=== PATIENT | female | born 1945 | race Caucasian/White ===

== ENCOUNTER 2016-11-18 22:12 | Emergency (ER) | payer BC, MEDICARE, OTHER ==
[~2016-11-18] VITALS: Ht 144.8 cm; Wt 40.4 kg
[2016-11-18] MEDS ORDERED: IV NS 0.9% 1,000 ML ONE (22:54)
[2016-11-18] MEDS ORDERED: IV SET PRIMARY 1 EA INFUS.SET MC ONE (22:54)
[2016-11-18] MEDS ORDERED: ONDANSETRON HCL/PF 4 MG/2 ML VIAL ONE (22:54)
[2016-11-18] MEDS: IV NS 0.9% 1,000 ML BAG IV ONE (23:00)
[2016-11-18] MEDS ORDERED: LORAZEPAM 1 MG TABLET ONE (23:02)
[2016-11-18] MEDS: ONDANSETRON HCL/PF 4 MG/2 ML VIAL IV ONE (23:02)
[2016-11-18] MEDS: LORAZEPAM 0.5 MG TABLET PO ONE (23:08)
[2016-11-18 23:28] LABS: BASOPHILS % (AUTO) 0.3 % (0.0-2.0); EOSINOPHILS % (AUTO) 0.6 % (0.0-6.0); HEMATOCRIT 21 % (33-45); HEMOGLOBIN 7.2 g/dL (11.5-14.8); LYMPHOCYTES # (AUTO) 1.8 /CMM (0.8-4.8); LYMPHOCYTES % (AUTO) 31.1 % (20.0-44.0); MEAN CORPUSCULAR HEMOGLOBIN 33 PG (26.0-33.0); MEAN CORPUSCULAR HGB CONC 34 g/dl (31.0-36.0); MEAN CORPUSCULAR VOLUME 97 fL (82-100); MONOCYTES # (AUTO) 0.6 /CMM (0.1-1.30); MONOCYTES % (AUTO) 9.5 % (2.0-12.0); NEUTROPHILS # (AUTO) 3.5 /CMM (1.8-8.9); NEUTROPHILS % (AUTO) 58.5 % (43.0-81.0); PLATELET COUNT (AUTO) 91 /CMM (150-450); RED BLOOD CELL COUNT(AUTO) 2.19 MIL/uL (4.0-5.2); WHITE BLOOD COUNT (AUTO) 5.9 K/uL (4.3-11.0)
--- NOTE | 2016-11-18 23:30 | NUR ---
XRAY IN PROGRESS AT THE BEDSIDE.
[2016-11-18 23:40] LABS: CALCIUM, SERUM 8.5 mg/dL (8.5-10.1); CARBON DIOXIDE 25 mmol/L (21-32); CHLORIDE 101 mmol/L (98-107); CREATININE 0.7 mg/dL (0.6-1.3); GLUCOSE 89 mg/dL (74-106); SODIUM SERUM 134 mmol/L (136-145); UREA NITROGEN, BLOOD 13 mg/dL (7-18)
[2016-11-18 23:41] LABS: INR 0.94 (0.87-1.13)
[2016-11-18 23:44] LABS: ALANINE AMINOTRANSFERASE 25 U/L (12-78); ALBUMIN 2.8 g/dL (3.4-5.0); ALKALINE PHOSPHATASE 125 U/L (46-116); ASPARTATE AMINOTRANSFERASE 17 U/L (15-37); BILIRUBIN,DIRECT 0.1 mg/dL (0.0-0.2); BILIRUBIN,TOTAL 0.3 mg/dL (0.2-1.0); LIPASE 271 U/L (73-393); TOTAL PROTEIN, SERUM 5.9 g/dL (6.4-8.2)
[2016-11-19 00:06] LABS: EOSINOPHILS % (MANUAL) 1 % (0-4); LYMPHOCYTES % (MANUAL) 31 % (16-48); MONOCYTES % (MANUAL) 7 % (0-11.0); NEUTROPHILS % (MANUAL) 61 (42-76)
[2016-11-19] MEDS ORDERED: LORAZEPAM 1 MG TABLET ONE (01:50)
--- NOTE | 2016-11-19 01:52 | NUR ---
PT TOLERATED PO WELL. PT APPEARS ANXIOUS. DR. MCKEON IS AWARE
--- NOTE | 2016-11-19 01:58 | NUR ---
PT REFUSED ATIVAN 0.5MG PO. PT STATED THAT IT MAKES HER FEEL HEAVY AND DOESN'T HELP HER ANXIETY.
[2016-11-19 02:38] LABS: HEMOGLOBIN 7.3 g/dL (11.5-14.8)
--- NOTE | 2016-11-19 03:15 | NUR ---
PT APPEARS TO BE RESTING COMFORTABLY. VSS.
--- NOTE | 2016-11-19 04:30 | NUR ---
IV removed. Catheter intact and site benign. Pressure and 4x4 applied to site. No bleeding noted.Patient discharged to home in stable condition. Written and verbal after care instructions given. Patient verbalizes understanding of instruction. PT AMBULATED OUT WITH A STEADY GAIT. VSS. PT REC'D A COPY OF ALL LABS AND XRAY.
[2016-11-19 04:47] VITALS: BP 108/67
== END 2016-11-19 04:30 | disposition home or self-care (01) ==
LOC: ER 22:18
DX: D64.9 Anemia, unspecified (principal); C85.90 Non-Hodgkin lymphoma, unspecified, unspecified site; F41.9 Anxiety disorder, unspecified; R79.1 Abnormal coagulation profile; G89.29 Other chronic pain; Z88.0 Allergy status to penicillin; Z88.1 Allergy status to other antibiotic agents; Z88.8 Allergy status to other drugs, medicaments and biological substances
CPT/HCPCS: 36415; 71010-TC; 80048-TC; 80076-TC; 83690-TC; 85025-TC; 85027-TC; 85730-TC; A4606; J2405; J7030; Z7610

== ENCOUNTER 2016-12-08 19:48 | Inpatient (IN) | payer MEDICARE, OTHER ==
[~2016-12-08] VITALS: Ht 157.5 cm; Wt 49.9 kg
--- NOTE | 2016-12-08 20:35 | NUR ---
71 YO FEMALE, C/O GENERALIZED BODY PAIN. PT IS ALERT X 3, NOTED DIFUSE BODY RASH, STATES SHE TRIED HYDROCORTIZONE WITHOUT RELIEF. PT GOWNED, PLACED ON MGMT SPECIALIST. AWAITING ORDERS FROM PROVIDER, WILL CONTINUE TO MONITOR
--- NOTE | 2016-12-08 21:00 | NUR ---
PT REFUSED MEDICATION
[2016-12-08] MEDS ORDERED: MORPHINE SULFATE INJ 4 MG/ML DISP.SYRIN ONE (21:15)
[2016-12-08] MEDS ORDERED: ONDANSETRON HCL/PF 4 MG/2 ML VIAL ONE (21:15)
[2016-12-08] MEDS ORDERED: ONDANSETRON HCL/PF 4 MG/2 ML VIAL IVP ONE (21:30)
[2016-12-08] MEDS ORDERED: MORPHINE SULFATE INJ 2 MG/ML DISP.SYRIN IV ONE (21:30)
[2016-12-08 21:40] LABS: BASOPHILS % (AUTO) 0.1 % (0.0-2.0); EOSINOPHILS # (AUTO) 0.1 /CMM (0.0-0.7); EOSINOPHILS % (AUTO) 0.4 % (0.0-6.0); HEMATOCRIT 27 % (33-45); HEMOGLOBIN 9.2 g/dL (11.5-14.8); LYMPHOCYTES # (AUTO) 0.9 /CMM (0.8-4.8); LYMPHOCYTES % (AUTO) 6.4 % (20.0-44.0); MEAN CORPUSCULAR HEMOGLOBIN 33 PG (26.0-33.0); MEAN CORPUSCULAR HGB CONC 34 g/dl (31.0-36.0); MEAN CORPUSCULAR VOLUME 96 fL (82-100); MONOCYTES # (AUTO) 0.2 /CMM (0.1-1.30); MONOCYTES % (AUTO) 1.4 % (2.0-12.0); NEUTROPHILS # (AUTO) 12.5 /CMM (1.8-8.9); NEUTROPHILS % (AUTO) 91.7 % (43.0-81.0); PLATELET COUNT (AUTO) 75 /CMM (150-450); RDW COEFFICIENT OF VARIATION 20.8 (11.5-15.0); RED BLOOD CELL COUNT(AUTO) 2.81 MIL/uL (4.0-5.2); WHITE BLOOD COUNT (AUTO) 13.7 K/uL (4.3-11.0)
[2016-12-08] MEDS ORDERED: ACETAMINOPHEN 325 MG TABLET ONE (21:50)
[2016-12-08 21:55] LABS: INR 0.99 (0.87-1.13); PROTHROMBIN TIME 10.3 SECS (9.5-12.7)
[2016-12-08] MEDS ORDERED: ACETAMINOPHEN 325 MG TABLET PO ONE (22:00)
[2016-12-08 22:05] LABS: ALANINE AMINOTRANSFERASE 33 U/L (12-78); ALBUMIN 2.3 g/dL (3.4-5.0); ALKALINE PHOSPHATASE 231 U/L (46-116); ASPARTATE AMINOTRANSFERASE 23 U/L (15-37); BILIRUBIN,DIRECT 0.2 mg/dL (0.0-0.2); BILIRUBIN,TOTAL 0.5 mg/dL (0.2-1.0); CALCIUM, SERUM 8.9 mg/dL (8.5-10.1); CARBON DIOXIDE 19 mmol/L (21-32); CHLORIDE 103 mmol/L (98-107); GLUCOSE 85 mg/dL (74-106); POTASSIUM 3.3 mmol/L (3.5-5.1); SODIUM SERUM 137 mmol/L (136-145); TOTAL PROTEIN, SERUM 5.8 g/dL (6.4-8.2); UREA NITROGEN, BLOOD 30 mg/dL (7-18)
[2016-12-08 22:20] LABS: BAND % (MANUAL) 14 % (0.0-5.0); LYMPHOCYTES % (MANUAL) 10 % (16-48); METAMYELOCYTES % 1 % (0-0); MONOCYTES % (MANUAL) 8 % (0-11.0); MYELOCYTES % 1 % (0-0); NEUTROPHILS % (MANUAL) 66 (42-76)
[2016-12-08] MEDS ORDERED: methylPREDNISolone SOD SUCC 125 MG/2ML VIAL ONE (22:45)
[2016-12-08] MEDS ORDERED: IV NS 0.9% 500 ML IV ONE (22:46)
[2016-12-08] MEDS ORDERED: IV SET PRIMARY 1 EA INFUS.SET MC ONE (22:46)
--- NOTE | 2016-12-08 22:54 | NUR ---
GOING TO M/S 206.2
[2016-12-08 22:56] LABS: APPEARANCE,URINE CLEAR (CLEAR); BILIRUBIN,URINE NEGATIVE (NEGATIVE); BLOOD, URINE 2+ Ery/uL (NEGATIVE); KETONES,URINE NEGATIVE (NEGATIVE); LEUKOCYTE ESTERASE ,URINE TRACE (NEGATIVE); NITRITE, URINE NEGATIVE (NEGATIVE); PROTEIN,URINE NEGATIVE (NEGATIVE); UGLUCOSE NEGATIVE (NEGATIVE); UROBILINOGEN,URINE 0.2 EU/dL (0.2)
[2016-12-08 22:58] LABS: COLOR,URINE STRAW (YELLOW)
[2016-12-08] MEDS ORDERED: IV NS 0.9% 500 ML BAG IV ONE (23:00)
[2016-12-08] MEDS ORDERED: methylPREDNISolone SOD SUCC 125 MG/2ML VIAL IV ONE (23:00)
--- NOTE | 2016-12-08 23:01 | NUR ---
MEDICATED PT ORDERED
--- NOTE | 2016-12-08 23:02 | NUR ---
PT TRANPORTED TO MS BED BY EMT WITHOUT INCIDENT
--- NOTE | 2016-12-08 23:02 | NUR ---
REPORT GIVEN TO JI
[2016-12-08 23:09] LABS: BACTERIA,URINE None seen /HPF (None Seen); SQUAMOUS EPITHELIAL CELL,UR Rare /HPF (None Seen); WBC,URINE 0-2 /HPF (0-3)
[2016-12-08] MEDS ORDERED: IV NS 0.9% 1,000 ML IV PRN (23:29)
[2016-12-08] MEDS ORDERED: IV SET PRIMARY PUMP SET 1 EA INFUS.SET MC ONE (23:30)
[2016-12-08] MEDS ORDERED: ACETAMINOPHEN 325 MG TABLET PO PRN (23:30)
[2016-12-08] MEDS ORDERED: LIDOCAINE 0.5%-EPI 1:200,000 50 ML VIAL TP ONE (23:30)
[2016-12-08] MEDS ORDERED: MORPHINE SULFATE INJ 2 MG/ML DISP.SYRIN IV PRN (23:30)
[2016-12-08] MEDS ORDERED: Z GUARD REMEDY 2 OZ OINT TP PRN (23:30)
[2016-12-08] MEDS ORDERED: PANTOPRAZOLE 40 MG TABLET.DR PO SCH (23:30)
[2016-12-08] MEDS ORDERED: ENOXAPARIN SODIUM 40 MG/0.4 ML DISP.SYRIN SQ SCH (23:30)
[2016-12-08] MEDS ORDERED: ONDANSETRON HCL/PF 4 MG/2 ML VIAL IVP PRN (23:30)
[2016-12-09] VITALS: BP 113/67
[2016-12-09] MEDS ORDERED: ENOXAPARIN SODIUM 40 MG/0.4 ML DISP.SYRIN SQ SCH
[2016-12-09] MEDS ORDERED: ONDANSETRON HCL/PF 4 MG/2 ML VIAL IVP PRN
[2016-12-09] MEDS ORDERED: MAGNESIUM HYDROXIDE 30 ML UDC PO PRN
--- NOTE | 2016-12-09 | NUR ---
MS SHELTER DIRECTOR NOTES ADMITTED THIS 71 Y.O. FEMALE PER RIRI FROM ER UNDER THE SERVICE OF JEWELS FINCH DNP.CHIEF COMPLAINT OF RASHES ON BOTH UPPER AND LOWER EXTREMITIES X 2 WEEKS.ACCOMPANIED BY FAMILY MEMBERS,ALERT,ORIENTED X3-4 FROM HOME,RASHES ON UPPER AND LOWER EXTREMITIES NOTED.SALINE LOCK LFA INTACT AND PATENT.NOTED PITTING EDEMA + 3 ON RIGHT FOOT,+2 ON THE LEFT FOOT.WITH KNOWN HX OF LYMPHOMA ON RIGHT ARM.BOTH HANDS APPEARS SWOLLEN AND SKIN IS PEELING OFF,WITH ITCHINESS PER PATIENT.EXPOSED TO AIR,WILL CONTINUE TO MONITOR.CALL LIGHT IN REACH,NEEDS ANTICIPATED.
[2016-12-09] MEDS ORDERED: IV NS 0.9% 1,000 ML ONE (00:05)
[2016-12-09] MEDS ORDERED: ENOXAPARIN SODIUM 40 MG/0.4 ML DISP.SYRIN SQ ONE (00:05)
[2016-12-09] MEDS: IV NS 0.9% 1,000 ML IV PRN (00:13)
--- NOTE | 2016-12-09 00:13 | NUR ---
MS RN NOTES STARTED ON NS AT 75ML/HR RATE VIA IV PUMP
--- NOTE | 2016-12-09 00:15 | NUR ---
MS RN NOTES C/O PAIN 7/10 ON PAIN SCALE,MEDICATED WITH NORCO 10/325MG, 1TAB PO FOR MODERATE PAIN.
[2016-12-09] MEDS: FLUOCINONIDE 0.05% CREAM 60 GM TUBE TP SCH ×3 (00:30→16:56)
[2016-12-09] MEDS ORDERED: hydrOXYzine PAMOATE 25 MG CAPSULE ONE (01:05)
[2016-12-09] MEDS ORDERED: HYDROCODONE/APAP 10/325MG 1 EA TABLET ONE (01:16)
[2016-12-09] MEDS: HYDROCODONE/APAP 10/325MG 1 EA TABLET PO PRN (01:21)
[2016-12-09] MEDS: hydrOXYzine PAMOATE 25 MG CAPSULE PO PRN ×2 (01:21→22:38)
--- NOTE | 2016-12-09 02:30 | NUR ---
MS RN NOTES AWAKE,ASSISTED TO THE TOILET.SHE DID #1,AND BRUSHED HER TEETH.CLAIMED SHE FEELS BETTER,LESS ITCHING THIS TIME.
--- NOTE | 2016-12-09 06:41 | NUR ---
MS RN NOTES ON BED A/O X3-4,FEELING BETTER VERBALIZED BY PT.LESS REDNESS ON HANDS,ABLE TO AMBULATE TO THE TOILET TO PEE.IVF INFUSING.CALL LIGHT IN REACH,NEEDS ANTICIPATED.WILL ENDORSE TO DAY NURSE FOR ALYSSA
[2016-12-09 06:47] LABS: HEMATOCRIT 28 % (33-45); HEMOGLOBIN 9.4 g/dL (11.5-14.8); LYMPHOCYTES # (AUTO) 0.9 /CMM (0.8-4.8); MEAN CORPUSCULAR HEMOGLOBIN 33 PG (26.0-33.0); MEAN CORPUSCULAR HGB CONC 34 g/dl (31.0-36.0); MEAN CORPUSCULAR VOLUME 97 fL (82-100); MONOCYTES % (AUTO) 0.2 % (2.0-12.0); NEUTROPHILS # (AUTO) 11.6 /CMM (1.8-8.9); NEUTROPHILS % (AUTO) 92.8 % (43.0-81.0); PLATELET COUNT (AUTO) 64 /CMM (150-450); RDW COEFFICIENT OF VARIATION 22.9 (11.5-15.0); RED BLOOD CELL COUNT(AUTO) 2.85 MIL/uL (4.0-5.2); WHITE BLOOD COUNT (AUTO) 12.5 K/uL (4.3-11.0)
[2016-12-09 07:07] LABS: ALANINE AMINOTRANSFERASE 29 U/L (12-78); ALBUMIN 2.2 g/dL (3.4-5.0); ALKALINE PHOSPHATASE 222 U/L (46-116); ASPARTATE AMINOTRANSFERASE 22 U/L (15-37); BILIRUBIN,TOTAL 0.4 mg/dL (0.2-1.0); CALCIUM, SERUM 8.6 mg/dL (8.5-10.1); CARBON DIOXIDE 19 mmol/L (21-32); CHLORIDE 106 mmol/L (98-107); CREATININE 1.1 mg/dL (0.6-1.3); GLUCOSE 132 mg/dL (74-106); MAGNESIUM 1.7 mg/dL (1.8-2.4); PHOSPHORUS 4.1 mg/dL (2.5-4.9); POTASSIUM 3.6 mmol/L (3.5-5.1); SODIUM SERUM 138 mmol/L (136-145); TOTAL PROTEIN, SERUM 5.7 g/dL (6.4-8.2); UREA NITROGEN, BLOOD 29 mg/dL (7-18)
[2016-12-09 07:10] LABS: CHOLESTEROL 94 mg/dL (<200); HDL CHOLESTEROL 13 mg/dL (40-60); LDL 40 mg/dL (0-99); THYROID STIMULATING HORMONE 1.958 uIU/mL (0.358-3.74); TRIGLYCERIDES 59 mg/dL (30-150)
--- NOTE | 2016-12-09 07:10 | NUR ---
RN OPEN NOTES RECEIVED REPORT FROM EKG/ECG TECHNICIAN NURSE. PATIENT IS IN BED, ALERT AND ORIENTED TO NAME, PLACE AND TIME. BED IN LOW POSITION, LOCKED AND TWO SIDE RAILS ARE UP. NO SIGNS AND SYMPTOMS OF DISTRESS. WILL CONTINUE TO MONITOR AND ASSESS PATIENT.
[2016-12-09 08:00] VITALS: BP 105/56
[2016-12-09] MEDS ORDERED: PANT40TA2 PO (08:23)
[2016-12-09] MEDS ORDERED: IBUP-1482 PO (08:23)
[2016-12-09] MEDS ORDERED: SULF1TAB48 PO (08:23)
[2016-12-09] MEDS ORDERED: FOLI1TAB16 PO (08:23)
[2016-12-09] MEDS ORDERED: LORA0.5T PO (08:23)
[2016-12-09] MEDS ORDERED: FLUC100T8 PO (08:23)
[2016-12-09] MEDS ORDERED: MULT1TAB73 PO (08:23)
[2016-12-09] MEDS ORDERED: IV SET PRIMARY PUMP SET 1 EA INFUS.SET MC ONE (08:50)
[2016-12-09] MEDS: methylPREDNISolone SOD SUCC 125 MG/2ML VIAL IV SCH ×4 (08:58→16:56)
[2016-12-09] MEDS: PANTOPRAZOLE 40 MG TABLET.DR PO SCH (08:58)
[2016-12-09] MEDS ORDERED: PAMIDRONATE 90 MG in IV NS 0.9% 500 ML IV SCH (09:00)
[2016-12-09 10:22] LABS: BAND % (MANUAL) 32 % (0.0-5.0); LYMPHOCYTES % (MANUAL) 8 % (16-48); NEUTROPHILS % (MANUAL) 60 (42-76)
--- NOTE | 2016-12-09 14:45 | NUR ---
DR ESTRADA NOTIFIED OF DIARRHEA. NO ANTI-DIARRHEA MEDS AT THIS POINT. STOOL SPECIMEN PENDING
--- NOTE | 2016-12-09 15:00 | NUR ---
DR DOMINGUEZ NOTIFIED TO RECONCILE HOME MEDICATIONS
[2016-12-09 16:00] VITALS: BP 110/69
--- NOTE | 2016-12-09 19:35 | NUR ---
RN CLOSING NOTES GAVE REPORT TO TECHNICAL INFORMATION SPECIALIST NURSE. NO SIGNS AND SYMPTOMS OF DISTRESS. DENIED PAIN. VITAL SIGNS ARE STABLE. IV SITE IN INTACT AND PATENT. BED IN LOW POSITION, LOCKED AND TWO SIDE RAILS ARE UP. PATIENT KEPT CLEAN AND DRY. ALL NEEDS ANTICIPATED.
[2016-12-09 19:54] VITALS: BP 98/59
--- NOTE | 2016-12-09 20:00 | NUR ---
MS2/RN RECEIVE PATIENT AWAKE, ALERT, ORIENTED, COMFORTABLE, NO C/O PAIN, PER PATIENT SHE FEELS MUCH BETTER THAN YESTERDAY, NO SIGNS OF DISTRESS NOTED, CALL LIGHT IN REACH. FALL PRECAUTION, WILL MONITOR.
--- NOTE | 2016-12-09 22:40 | NUR ---
MS2/RN C/O ITCHING OF THE SKIN LESIONS, VISTARIL 25 MG PO WAS GIVEN ORDERED. WILL MONITOR.
--- NOTE | 2016-12-10 | NUR ---
MS/RN SLEEPING, AROUSABLE, APPEAR COMFORTABLE, NO SIGNS OF DISTRESS NOTED, CALL LIGHT IN REACH. WILL CONTINUE TO MONITOR.
[2016-12-10 06:36] LABS: BASOPHILS % (AUTO) 0.1 % (0.0-2.0); HEMATOCRIT 24 % (33-45); HEMOGLOBIN 8.2 g/dL (11.5-14.8); LYMPHOCYTES # (AUTO) 0.8 /CMM (0.8-4.8); LYMPHOCYTES % (AUTO) 8.5 % (20.0-44.0); MEAN CORPUSCULAR HEMOGLOBIN 33 PG (26.0-33.0); MEAN CORPUSCULAR HGB CONC 34 g/dl (31.0-36.0); MEAN CORPUSCULAR VOLUME 96 fL (82-100); MONOCYTES # (AUTO) 0.1 /CMM (0.1-1.30); MONOCYTES % (AUTO) 0.9 % (2.0-12.0); NEUTROPHILS # (AUTO) 8.9 /CMM (1.8-8.9); NEUTROPHILS % (AUTO) 90.5 % (43.0-81.0); PLATELET COUNT (AUTO) 65 /CMM (150-450); RDW COEFFICIENT OF VARIATION 22.7 (11.5-15.0)
[2016-12-10 07:07] LABS: WHITE BLOOD COUNT (AUTO) 9.8 K/uL (4.3-11.0)
--- NOTE | 2016-12-10 07:33 | NUR ---
MS2/RN PATIENT IS AWAKE, NO C/O PAIN, ALL NEEDS ATTENDED AT THIS TIME. ENDORSED.
--- NOTE | 2016-12-10 07:47 | NUR ---
MS RN OPENING NOTE PATIENT IS ALERT AND ORIENTED x3. NO PAIN AT THIS TIME. NO SOB OR DISTRESS NOTED. CALL LIGHT WITHIN REACH. SAFETY MEASURES IMPLEMENTED. ABLE TO COMMUNICATE NEEDS, [place] SPEAKING. IV INTACT AND PATENT NO REDNESS NOTED, IV FLUIDS RUNNING. WILL CONTINUE TO MONITOR
[2016-12-10 08:00] VITALS: BP 115/65
[2016-12-10 08:11] LABS: CALCIUM, SERUM 8.5 mg/dL (8.5-10.1); CREATININE 0.9 mg/dL (0.6-1.3); GLUCOSE 160 mg/dL (74-106); MAGNESIUM 1.9 mg/dL (1.8-2.4); UREA NITROGEN, BLOOD 39 mg/dL (7-18)
[2016-12-10 08:16] LABS: CARBON DIOXIDE 15 mmol/L (21-32); CHLORIDE 111 mmol/L (98-107); POTASSIUM 3.3 mmol/L (3.5-5.1); SODIUM SERUM 142 mmol/L (136-145)
[2016-12-10 08:20] LABS: BAND % (MANUAL) 17 % (0.0-5.0); LYMPHOCYTES % (MANUAL) 7 % (16-48); MONOCYTES % (MANUAL) 2 % (0-11.0); NEUTROPHILS % (MANUAL) 74 (42-76)
[2016-12-10] MEDS: hydrOXYzine PAMOATE 25 MG CAPSULE PO PRN ×2 (08:32→18:48)
[2016-12-10] MEDS: ACETAMINOPHEN 325 MG TABLET PO PRN ×2 (08:32→16:17)
[2016-12-10] MEDS: methylPREDNISolone SOD SUCC 125 MG/2ML VIAL IV SCH ×3 (08:34→16:16)
[2016-12-10] MEDS: PANTOPRAZOLE 40 MG TABLET.DR PO SCH (08:34)
--- NOTE | 2016-12-10 08:38 | NUR ---
WOUND CARE CONSULT: PT HAS REDNESS AND PEELING SKIN TO BODY, ESPECIALLY HANDS. DEFER TO MD. PT IS AMBULATORY AND CONTINENT. WILL SEE PRN.
--- NOTE | 2016-12-10 09:42 | NUR ---
MS RN NOTE PATIENT IS GOING DOWN TO CT WITHOUT CONTRAST. PATIENT IS STABLE NO PAIN, NO SOB OR DISTRESS NOTED.
--- NOTE | 2016-12-10 09:55 | NUR ---
MS RN NOTE PATIENT IS BACK FROM CT SCAN. PATIENT IS STABLE, NO PAIN AT THIS TIME NO SOB OR DISTRESS NOTED. WILL CONTINUE TO MONITOR
[2016-12-10] MEDS ORDERED: POTASSIUM CL. PREMIX PERIPHER. 50 ML IV SCH ×2 (10:00→14:30)
[2016-12-10] MEDS ORDERED: SECONDARY IV SET 1 EA INFUS.SET MC ONE (10:32)
[2016-12-10] MEDS ORDERED: IV SET PRIMARY PUMP SET 1 EA INFUS.SET MC ONE (10:35)
[2016-12-10] MEDS: FLUOCINONIDE 0.05% CREAM 60 GM TUBE TP SCH ×2 (10:42→16:16)
[2016-12-10] MEDS ORDERED: POTASSIUM CHLORIDE 20 MEQ TAB.PRT.SR PO SCH (11:00)
[2016-12-10 16:00] VITALS: BP 113/74
[2016-12-10] MEDS: IV NS 0.9% 1,000 ML IV PRN (16:16)
[2016-12-10 18:28] LABS: RETICULOCYTE COUNT 1.5 % (0.6-2.5)
--- NOTE | 2016-12-10 18:38 | NUR ---
MS RN CLOSING NOTE PATIENT IS ALERT AND ORIENTED x3. NO PAIN AT THIS TIME. NO SOB OR DISTRESS NOTED. PERIODS OF CONFUSION. CALL LIGHT WITHIN REACH AT ALL TIMES. SAFETY MEASURES IMPLEMENTED. IV INTACT AND PATENT NO REDNESS OR SWELLING NOTED, IV FLUIDS RUNNING AT 75 ML/HR AT THIS TIME. ABLE TO COMMUNICATE NEEDS, INDONESIAN SPEAKING. WILL ENDORSE TO RIGGING MAN NURSE
[2016-12-10 18:51] LABS: THYROID STIMULATING HORMONE 1.636 uIU/mL (0.358-3.74); URIC ACID 4.7 mg/dL (2.6-7.2)
[2016-12-10 20:00] VITALS: BP 115/74
[2016-12-10] MEDS ORDERED: MAG HYDROX/AL HYDROX/SIMETH 30 ML UDC PO PRN (21:00)
[2016-12-10] MEDS ORDERED: MAG HYDROX/AL HYDROX/SIMETH 30 ML UDC ONE (21:00)
[2016-12-10 21:11] LABS: D-DIMER 2.23 mg/L(FEU (0.17-0.50); INR 0.94 (0.87-1.13)
--- NOTE | 2016-12-10 21:14 | NUR ---
RN NOTES COMPLAINED OF GAS PAIN- MAALOX 30ML PO GIVEN ORDERED,,V/S STABLE
[2016-12-10] MEDS: HYDROCODONE/APAP 10/325MG 1 EA TABLET PO PRN (21:23)
--- NOTE | 2016-12-10 22:14 | NUR ---
MS2/RN PATIENT SAID GAS PAIN IS BETTER.
[2016-12-10] MEDS: MORPHINE SULFATE INJ 4 MG/ML DISP.SYRIN IV PRN (23:38)
--- NOTE | 2016-12-11 00:41 | NUR ---
MS2/RN PATIENT IS SLEEPING AT THIS TIME, AROUSABLE, APPEAR COMFORTABLE, NO SIGNS OF DISTRESS NOTED, CALL LIGHT IN REACH. WILL CONTINUE TO MONITOR.
[2016-12-11] MEDS: hydrOXYzine PAMOATE 25 MG CAPSULE PO PRN ×3 (02:22→23:17)
--- NOTE | 2016-12-11 02:23 | NUR ---
MS2/RN PATIENT C/O ITCHING, VISTARIL 25 MG PO WAS GIVEN ORDERED PER PATIENT'S REQUEST. WILL MONITOR.
[2016-12-11] MEDS: MORPHINE SULFATE INJ 4 MG/ML DISP.SYRIN IV PRN (06:08)
[2016-12-11] MEDS: IV NS 0.9% 1,000 ML IV PRN (06:14)
[2016-12-11 06:33] LABS: BASOPHILS % (AUTO) 0.1 % (0.0-2.0); EOSINOPHILS % (AUTO) 0.1 % (0.0-6.0); HEMATOCRIT 22 % (33-45); HEMOGLOBIN 7.4 g/dL (11.5-14.8); LYMPHOCYTES # (AUTO) 0.7 /CMM (0.8-4.8); LYMPHOCYTES % (AUTO) 14.2 % (20.0-44.0); MEAN CORPUSCULAR HEMOGLOBIN 33 PG (26.0-33.0); MEAN CORPUSCULAR HGB CONC 34 g/dl (31.0-36.0); MEAN CORPUSCULAR VOLUME 96 fL (82-100); MONOCYTES # (AUTO) 0.3 /CMM (0.1-1.30); MONOCYTES % (AUTO) 5.3 % (2.0-12.0); NEUTROPHILS # (AUTO) 4.2 /CMM (1.8-8.9); NEUTROPHILS % (AUTO) 80.3 % (43.0-81.0); PLATELET COUNT (AUTO) 51 /CMM (150-450); RDW COEFFICIENT OF VARIATION 22.5 (11.5-15.0); RED BLOOD CELL COUNT(AUTO) 2.27 MIL/uL (4.0-5.2); WHITE BLOOD COUNT (AUTO) 5.2 K/uL (4.3-11.0)
[2016-12-11 06:47] LABS: CALCIUM, SERUM 8.5 mg/dL (8.5-10.1); CARBON DIOXIDE 18 mmol/L (21-32); CHLORIDE 113 mmol/L (98-107); CREATININE 0.9 mg/dL (0.6-1.3); GLUCOSE 117 mg/dL (74-106); MAGNESIUM 1.9 mg/dL (1.8-2.4); PHOSPHORUS 2.9 mg/dL (2.5-4.9); POTASSIUM 3.7 mmol/L (3.5-5.1); SODIUM SERUM 143 mmol/L (136-145); UREA NITROGEN, BLOOD 45 mg/dL (7-18)
--- NOTE | 2016-12-11 07:01 | NUR ---
MS2/RN PATIENT IS AWAKE, ALERT, ORIENTED, NO C/O PAIN AT THIS TIME, ALL NEEDS ATTENDED AT THIS TIME. WILL CONTINUE TO MONITOR.
--- NOTE | 2016-12-11 07:52 | NUR ---
MS RN OPENING NOTE PATIENT IS ALERT AND ORIENTED x4. NO PAIN AT THIS TIME. NO SOB OR DISTRESS NOTED. CALL LIGHT WITHIN REACH. SAFETY MEASURES IMPLEMENTED. ABLE TO COMMUNICATE NEEDS. [place] SPEAKING. IV INTACT AND PATENT NO REDNESS OR SWELLING NOTED. WILL CONTINUE TO MONITOR
[2016-12-11 08:00] VITALS: BP 117/48
--- NOTE | 2016-12-11 08:11 | NUR ---
MS RN NOTE INFORMED DR. ESTRADA ABOUT PATIENT'S CRITICAL LAB VALUE FOR HEMOGLOBIN 7.4 AND HEMATOCRIT 22. NO NEW ORDERS AT THIS TIME. N TRANSFUSION AT THIS TIME, WILL CONTINUE TO MONITOR PATIENT FOR ANY SIGNS OF BLEEDING.
[2016-12-11] MEDS: methylPREDNISolone SOD SUCC 125 MG/2ML VIAL IV SCH ×3 (08:39→17:11)
[2016-12-11] MEDS: PANTOPRAZOLE 40 MG TABLET.DR PO SCH (08:39)
[2016-12-11] MEDS: FLUOCINONIDE 0.05% CREAM 60 GM TUBE TP SCH ×2 (08:41→17:12)
[2016-12-11 08:56] LABS: BAND % (MANUAL) 4 % (0.0-5.0); LYMPHOCYTES % (MANUAL) 8 % (16-48); MONOCYTES % (MANUAL) 5 % (0-11.0); NEUTROPHILS % (MANUAL) 83 (42-76)
--- NOTE | 2016-12-11 09:00 | NUR ---
MS RN NOTE PATIENT'S IV INFILTRATED. IV REMOVED. NEW IV STARTED ON LEFT WRIST 22 GAUGE. INATCT AND PATENT NO REDNESS OR SWELLING NOTED.
[2016-12-11 16:00] VITALS: BP 125/67
--- NOTE | 2016-12-11 18:48 | NUR ---
MS RN CLOSING NOTE PATIENT IS ALERT AND ORIENTED x3. NO PAIN AT THIS TIME. NO SOB OR DISTRESS NOTED. CALL LIGHT WITHIN REACH AT ALL TIMES. SAFETY MEASURES IMPLEMENTED. ABLE TO COMMUNICATE NEEDS. IV INTACT AND PATENT NO REDNESS OR SWELLING NOTED. PER DR. ESTRADA MONITOR FOR SIGNS OF BLEEDING DUE TO H/H BEING LOW. WILL ENDORSE TO DINING CAR STEWARD NURSE
--- NOTE | 2016-12-11 19:35 | NUR ---
MSRN FULLY AWAKE, GENERALIZED RASH SEEN. IVF ON AND OFF, HARDSTICK. WILL NEED TO RESTART IV SITE. ALL NEEDS MADE. SAFETY PRECAUTINS EMPHASIZED.
[2016-12-11 20:00] VITALS: BP 125/72
[2016-12-11] MEDS: TEMAZEPAM 15 MG CAPSULE PO PRN (20:49)
--- NOTE | 2016-12-11 20:50 | NUR ---
MSRN WANTED TO HAVE RESTORIL EARLY, STATED DID NOT HAVE ENOUGH SLEEP ALL DAY. MED ADMINISTERED. ASSISTED TO BSC VOIDED FREELY.
--- NOTE | 2016-12-11 22:40 | NUR ---
MSRN UNABLE TO RESTART HL, POOR VEINS. HAVE HAND STRIPER START NEW SITE WAS UNSUCCESSFULL. WILL HAVE RN FROM ER START HL. PATIENT COMPLAINING NEED TO HAVE MORE STERIODS, EDUCATED PATIENT SIDE EFFECTS OF GETTING TOO MUCH STERIOD. MEDICATIN REGIMEN REVIEWED WITH PATIENT, STILL NEEDS FURTHER EXPLANATION. ICU NURSE DUCATED PATIENT STILL NEEDS FURTHER EXPLANATION. VISTARIL FOR ITCHING ADMINISTERED.
--- NOTE | 2016-12-12 00:30 | NUR ---
MSRN GAS APPLIANCE INSTALLER ABLE TO INSERT 20 GAUGE ON LEFT FOREARM WITH GOOD BLOOD RETURN. PRESENT IVF CONTINUED. REQUESTED FOR MORPHINE IV FOR GEN PAIN RYAN LEFT ARM FROM IV SITE.
[2016-12-12] MEDS: MORPHINE SULFATE INJ 4 MG/ML DISP.SYRIN IV PRN (00:54)
--- NOTE | 2016-12-12 03:44 | NUR ---
MSRN FREQ CHECKED, SLEEPING APPEARS COMFORTABLE.
--- NOTE | 2016-12-12 06:00 | NUR ---
MSRN LABS DRAWN. NO OTHER NEEDS MADE.
[2016-12-12 06:45] LABS: BASOPHILS % (AUTO) 0.2 % (0.0-2.0); HEMATOCRIT 22 % (33-45); HEMOGLOBIN 7.5 g/dL (11.5-14.8); LYMPHOCYTES # (AUTO) 0.8 /CMM (0.8-4.8); LYMPHOCYTES % (AUTO) 20.5 % (20.0-44.0); MEAN CORPUSCULAR HEMOGLOBIN 32 PG (26.0-33.0); MEAN CORPUSCULAR HGB CONC 34 g/dl (31.0-36.0); MEAN CORPUSCULAR VOLUME 95 fL (82-100); MONOCYTES # (AUTO) 0.3 /CMM (0.1-1.30); MONOCYTES % (AUTO) 7.7 % (2.0-12.0); NEUTROPHILS # (AUTO) 2.6 /CMM (1.8-8.9); NEUTROPHILS % (AUTO) 71.6 % (43.0-81.0); RDW COEFFICIENT OF VARIATION 22.5 (11.5-15.0); RED BLOOD CELL COUNT(AUTO) 2.32 MIL/uL (4.0-5.2); WHITE BLOOD COUNT (AUTO) 3.7 K/uL (4.3-11.0)
[2016-12-12 06:52] LABS: PLATELET COUNT (AUTO) 46 /CMM (150-450)
[2016-12-12 06:54] LABS: CALCIUM, SERUM 7.9 mg/dL (8.5-10.1); CARBON DIOXIDE 21 mmol/L (21-32); CREATININE 0.8 mg/dL (0.6-1.3); GLUCOSE 110 mg/dL (74-106); PHOSPHORUS 3.2 mg/dL (2.5-4.9); UREA NITROGEN, BLOOD 42 mg/dL (7-18)
--- NOTE | 2016-12-12 07:35 | NUR ---
AM RN NOTE Received patient sleeping comfortably in her bed, no acute distress noted. No SOB noted resp even and non-labored. Received report form previous shift RN with lab results endorsed, H/H 7.5, Na 121, K 2.8, Plt count 46, notified Dr. Green with NNO at this time. IV site intact and patent. Bed in low locked position. Will continue to monitor. Call light with in reach.
[2016-12-12 07:37] LABS: BAND % (MANUAL) 5 % (0.0-5.0); LYMPHOCYTES % (MANUAL) 16 % (16-48); MONOCYTES % (MANUAL) 9 % (0-11.0); NEUTROPHILS % (MANUAL) 70 (42-76)
[2016-12-12 08:00] VITALS: BP 122/70
--- NOTE | 2016-12-12 08:07 | NUR ---
AM RN NOTE Received call from Karrie (Lab) that they repeated chemistry and Na 139 and K 3.[address] Green with new order noted and carried out.
[2016-12-12] MEDS ORDERED: POTASSIUM CHLORIDE 20 MEQ TAB.PRT.SR PO ONE ×2 (08:30→12:30)
[2016-12-12] MEDS: methylPREDNISolone SOD SUCC 125 MG/2ML VIAL IV SCH ×3 (08:41→16:34)
[2016-12-12] MEDS: PANTOPRAZOLE 40 MG TABLET.DR PO SCH (08:42)
[2016-12-12] MEDS: FLUOCINONIDE 0.05% CREAM 60 GM TUBE TP SCH ×2 (08:44→16:34)
[2016-12-12 09:42] LABS: SODIUM SERUM 139 mmol/L (136-145)
[2016-12-12 09:43] LABS: CHLORIDE 110 mmol/L (98-107); POTASSIUM 3.2 mmol/L (3.5-5.1)
--- NOTE | 2016-12-12 12:15 | NUR ---
AM RN NOTE Patient noted with swelling on left lower arm, seen and assessed by Dr. Green with new order for duplex. IV fluids held, extremity elevated with pillow and ice applied per Dr. Green. Will continue to monitor.
[2016-12-12 16:00] VITALS: BP 108/59
--- NOTE | 2016-12-12 16:00 | NUR ---
AM RN NOTE Decrease in swelling noted on Left arm. Awaiting for duplex test.
--- NOTE | 2016-12-12 17:20 | NUR ---
AM RN NOTE Patient noted with diarrhea, notified Dr. Green with new order to collect stool for C-diff, order noted and carried out.
--- NOTE | 2016-12-12 18:12 | NUR ---
AM RN NOTED Patient lying in her bed, no acute distress noted. Instructed pt an staff to collect sample of stool, whenever she moves her bowels. Awaiting for venous duplex to be done. Will endorse care to next shift.
--- NOTE | 2016-12-12 18:51 | NUR ---
AM RN NOTE Stool sample for C-diff collected and placed in fridge. Velma (lab) made aware. Called US department to check when they are coming to do duplex, no response. Will call back and endorse to next shift.
--- NOTE | 2016-12-12 19:30 | NUR ---
MS RN NOTE RECEIVED PATIENT FROM DAY SHIFT, PATIENT IS ALERT AND ORIENTEDX3, AMBULATORY WITH ASSIST, NO S/S OF RESPIRATORY DISTRESS OR PAIN AT THIS TIME. PEELING SKIN RASH NOTED ON HANDS AND LEFT ARM SWELLING NOTED, AWAITING FOR FIRER RETORT FOR VENOUS DUPLEX BUE. IV ON LEFT FA IS PATENT AND INTACT, HOLDING FLUID FOR A WHILE DUE TO SWELLING. SRX2, BED IN LOW POSITION, CALL LIGHT WITHIN REACH, WILL CONTINUE TO MONITOR PATIENT.
--- NOTE | 2016-12-12 19:45 | NUR ---
MS RN NOTE WEBSPHERE COMMERCE DEVELOPER AT THE BEDSIDE FOR VENOUS DUPLEX. NEGATIVE FOR DVT.
[2016-12-12 20:00] VITALS: BP 134/68
[2016-12-12] MEDS: TEMAZEPAM 15 MG CAPSULE PO PRN (22:42)
--- NOTE | 2016-12-12 23:00 | NUR ---
MS RN NOTE NOTIFIED ONCSALIMA CHOE THAT PATIENT'S OB STOOL WAS POSITIVE. HE MADE AWARE OF IT, NO ORDER RECEIVED. WILL ENDORSE TO DAY SHIFT NURSE.
[2016-12-13 06:35] LABS: BASOPHILS % (AUTO) 0.1 % (0.0-2.0); HEMATOCRIT 23 % (33-45); LYMPHOCYTES # (AUTO) 0.9 /CMM (0.8-4.8); LYMPHOCYTES % (AUTO) 19.7 % (20.0-44.0); MEAN CORPUSCULAR HEMOGLOBIN 33 PG (26.0-33.0); MEAN CORPUSCULAR HGB CONC 34 g/dl (31.0-36.0); MEAN CORPUSCULAR VOLUME 97 fL (82-100); MONOCYTES # (AUTO) 0.3 /CMM (0.1-1.30); MONOCYTES % (AUTO) 6.8 % (2.0-12.0); NEUTROPHILS # (AUTO) 3.2 /CMM (1.8-8.9); NEUTROPHILS % (AUTO) 73.4 % (43.0-81.0); PLATELET COUNT (AUTO) 57 /CMM (150-450); RDW COEFFICIENT OF VARIATION 22.4 (11.5-15.0); RED BLOOD CELL COUNT(AUTO) 2.43 MIL/uL (4.0-5.2); WHITE BLOOD COUNT (AUTO) 4.4 K/uL (4.3-11.0)
--- NOTE | 2016-12-13 06:42 | NUR ---
MS RN NOTE PATIENT IS RESTING IN BED COMFORTABLY, NO S/S OF RESPIRATORY DISTRESS OR PAIN AT THIS TIME. NO ACUTE EVENT NOTED DURING THE GUM MACHINE FILLER. WILL ENDORSE TO DAY SHIFT NURSE FOR ALYSSA.
[2016-12-13 07:09] LABS: CALCIUM, SERUM 8.1 mg/dL (8.5-10.1); CARBON DIOXIDE 21 mmol/L (21-32); CHLORIDE 109 mmol/L (98-107); CREATININE 0.8 mg/dL (0.6-1.3); GLUCOSE 131 mg/dL (74-106); MAGNESIUM 1.8 mg/dL (1.8-2.4); PHOSPHORUS 2.7 mg/dL (2.5-4.9); POTASSIUM 3.4 mmol/L (3.5-5.1); SODIUM SERUM 142 mmol/L (136-145); UREA NITROGEN, BLOOD 36 mg/dL (7-18)
--- NOTE | 2016-12-13 07:21 | NUR ---
AM RN NOTE Received patient awake, A/O X3 lying in her bed comfortably, no acute distress noted. No SOB noted resp even and non-labored. Skin rash on body still visible and peeling skin noted on Mahendra hands. IV site intact and patent and IV fluids on hold as endorsed by shift boss. Bed in low locked position. Will continue to monitor.
[2016-12-13 08:00] VITALS: BP 113/70
[2016-12-13] MEDS: FLUOCINONIDE 0.05% CREAM 60 GM TUBE TP SCH ×2 (08:03→16:19)
[2016-12-13] MEDS: methylPREDNISolone SOD SUCC 125 MG/2ML VIAL IV SCH ×3 (08:04→16:19)
[2016-12-13] MEDS: PANTOPRAZOLE 40 MG TABLET.DR PO SCH (08:04)
[2016-12-13 09:34] LABS: BAND % (MANUAL) 9 % (0.0-5.0); EOSINOPHILS % (MANUAL) 1 % (0-4); LYMPHOCYTES % (MANUAL) 20 % (16-48); METAMYELOCYTES % 1 % (0-0); MONOCYTES % (MANUAL) 9 % (0-11.0); MYELOCYTES % 1 % (0-0); NEUTROPHILS % (MANUAL) 59 (42-76)
[2016-12-13] MEDS ORDERED: POTASSIUM CHLORIDE 20 MEQ TAB.PRT.SR PO ONE ×2 (12:00→12:30)
--- NOTE | 2016-12-13 12:30 | NUR ---
AM RN NOTE Swelling on ERIC subsiding and IV fluids held. Dr. Norma morton.
[2016-12-13 16:00] VITALS: BP 127/69
--- NOTE | 2016-12-13 18:13 | NUR ---
AM RN NOTE Pt c/o loose BM notified Dr. Green with NNO, awaiting for C-diff results per MD. Will continue to monitor and endorse care to next shift.
--- NOTE | 2016-12-13 19:30 | NUR ---
RN NOTES: -RECEIVED AWAKE ON BED, A/OX3, PER PATIENT SHE HAS DIARRHEA UPON ENDORSEMENT IT WAS ALREADY RELAYED TO DR. ESTRADA PER AM RN,NNO. AWAITING FOR THE C-DIFF RESULT.PATIENT IS AMBULATORY GOING TO THE BATHROOM, IV SITE LFA G#20 PATENT, ENCOURAGE TO INCREASE ORAL FLUIDS,ABLE TO TO TAKE ORALLY.CALL LIGHT WITHIN EASY REACH, FALL, SAFETY AND ASPIRATION PRECAUTION OBSERVE.SKIN -PEELING NOTED ON THE RIGHT AND LEFT HANDS.
[2016-12-13 20:00] VITALS: BP 131/73
[2016-12-13] MEDS ORDERED: DIPHENOXYLATE HCL/ATROP SULF 1 UDTAB TABLET ONE (21:19)
[2016-12-13] MEDS: DIPHENOXYLATE HCL/ATROP SULF 1 UDTAB TABLET PO PRN (21:36)
--- NOTE | 2016-12-13 21:44 | NUR ---
RN NOTES: 2114 PATIENT IS STILL HAVING DIARRHEA ALMOST 6X SINCE 7PM, REQUESTING TO HAVE LOMOTIL,FATBACK TRIMMER(ORLY) NOTIFIED ORDER TO GIVE LOMOTIL 2 TAB Q 4H PRN FOR DIARRHEA NTE 8X A DAY, NOTED AND CARRIED OUT.PATIENT WAS VERY DELIGHTED WHEN SHE RECEIVED THE MEDICATION.
[2016-12-13] MEDS: TEMAZEPAM 15 MG CAPSULE PO PRN (22:17)
--- NOTE | 2016-12-13 22:32 | NUR ---
RN NOTES: PATIENT COULD NOT SLEEP,SHE CLAIMED SHE FEEL BETTER AFTER THE LOMOTIL WAS GIVEN ,REQUEST FOR RESTORIL PRN FOR SLEEP, GIVEN AT 2226..
--- NOTE | 2016-12-14 02:19 | NUR ---
RN NOTES: ABLE TO SLEEP AND REST. ON FREQUENT VISUAL CHECK.
--- NOTE | 2016-12-14 03:50 | NUR ---
RN NOTES: PATIENT COMPLAINED OF PAIN ON THE IV SITE,UNABLE TO FLUSH, NO BACKFLOW,PATIENT REQUEST TO REMOVE AND RE-SITE THE CANNULA,RN INSERTED NEW CANNULA ON THE RIGHT HAND,G#24, 1 ATTEMPT WITH GOOD BACK FLOW, SECURED WITH TRANSPARENT DRESSING AND WRAP WITH KURLEX,IVF N/S RESTARTED AT 75ML/HR.
[2016-12-14] MEDS: IV NS 0.9% 1,000 ML IV PRN (04:47)
--- NOTE | 2016-12-14 04:48 | NUR ---
RN NOTES: IVF FINISHED, NEW BAG STARTED AT 0446 NS AT 75 ML/HR VIA INFUSSION PUMP.
--- NOTE | 2016-12-14 07:12 | NUR ---
RN NOTES: BLOOD TEST DONE, AWAITING FOR THE RESULT,KEPT ON CLOSE MONITORING,IVF ONGOING, BED LOW AND LOCKED, CALL LIGHT WITHIN EASY, ENDORSED FOR CONTINUITY OF CARE.
--- NOTE | 2016-12-14 07:32 | NUR ---
AM RN NOTE Received patient sleeping comfortably in her bed, no acute distress noted. Resp even and non-labored. IV site intact and patent. Bed in low locked position. Will continue to monitor. Call light with in reach.
[2016-12-14 07:35] LABS: BASOPHILS % (AUTO) 0.2 % (0.0-2.0); HEMATOCRIT 23 % (33-45); HEMOGLOBIN 7.7 g/dL (11.5-14.8); LYMPHOCYTES % (AUTO) 21.8 % (20.0-44.0); MEAN CORPUSCULAR HEMOGLOBIN 32 PG (26.0-33.0); MEAN CORPUSCULAR HGB CONC 33 g/dl (31.0-36.0); MEAN CORPUSCULAR VOLUME 96 fL (82-100); MONOCYTES # (AUTO) 0.1 /CMM (0.1-1.30); MONOCYTES % (AUTO) 1.7 % (2.0-12.0); NEUTROPHILS # (AUTO) 3.5 /CMM (1.8-8.9); NEUTROPHILS % (AUTO) 76.3 % (43.0-81.0); PLATELET COUNT (AUTO) 56 /CMM (150-450); RDW COEFFICIENT OF VARIATION 21.6 (11.5-15.0); RED BLOOD CELL COUNT(AUTO) 2.39 MIL/uL (4.0-5.2); WHITE BLOOD COUNT (AUTO) 4.6 K/uL (4.3-11.0)
[2016-12-14 07:50] LABS: CALCIUM, SERUM 8.2 mg/dL (8.5-10.1); CHLORIDE 110 mmol/L (98-107); CREATININE 0.6 mg/dL (0.6-1.3); GLUCOSE 102 mg/dL (74-106); MAGNESIUM 1.7 mg/dL (1.8-2.4); PHOSPHORUS 2.4 mg/dL (2.5-4.9); POTASSIUM 3.5 mmol/L (3.5-5.1); SODIUM SERUM 143 mmol/L (136-145); UREA NITROGEN, BLOOD 29 mg/dL (7-18)
[2016-12-14 07:55] LABS: CARBON DIOXIDE 22 mmol/L (21-32)
[2016-12-14 08:00] VITALS: BP 126/60
[2016-12-14] MEDS: methylPREDNISolone SOD SUCC 125 MG/2ML VIAL IV SCH ×3 (08:18→16:11)
[2016-12-14] MEDS: FLUOCINONIDE 0.05% CREAM 60 GM TUBE TP SCH ×2 (08:18→16:12)
[2016-12-14] MEDS: PANTOPRAZOLE 40 MG TABLET.DR PO SCH (08:18)
[2016-12-14 08:41] LABS: BAND % (MANUAL) 7 % (0.0-5.0); EOSINOPHILS % (MANUAL) 1 % (0-4); LYMPHOCYTES % (MANUAL) 18 % (16-48); METAMYELOCYTES % 2 % (0-0); MONOCYTES % (MANUAL) 8 % (0-11.0); NEUTROPHILS % (MANUAL) 64 (42-76)
--- NOTE | 2016-12-14 09:30 | NUR ---
AM RN NOTE Received call from Dr. Pope (Oncologist) and requested for patient oncologist numbers and records from [facility]. Telephone number of Dr. Amilcar Espinoza (Oncologist) [phone] and Toshia Wiggins (Oncologist) [phone] obtained from patient and given to Dr. Pope. Pt stated she brought all the records to ER in October when she was hospitalized here. Call [facility] Medical records and no response, Dr. Abdul made aware and will request records tomorrow.
[2016-12-14] MEDS ORDERED: ERGOCALCIFEROL (VITAMIN D 2) 50,000 UNIT CAPSULE PO ONE (10:00)
[2016-12-14] MEDS ORDERED: SECONDARY IV SET 1 EA INFUS.SET MC ONE ×2 (10:17→12:27)
[2016-12-14] MEDS: Magnesium 1GM/D5W 100ML PREMIX 100 ML IV SCH ×2 (10:22→11:25)
[2016-12-14] MEDS ORDERED: Sodium Phosphate 15 MMOL in IV D5W 250 ML IV ONE (11:00)
[2016-12-14 16:00] VITALS: BP 118/64
[2016-12-14] MEDS: VITAMINS A AND D 56.7 GM TUBE TP PRN (17:41)
--- NOTE | 2016-12-14 18:21 | NUR ---
AM RN NOTE Patient awake, no acute distress noted. Family at bedside. All needs met and attended in timely manner. Will endorse care to next shift.
--- NOTE | 2016-12-14 19:30 | NUR ---
MS RN NOTE RECEIVED PATIENT AWAKE IN BED. DENIES ANY PAIN OR DISCOMFORT AT THIS TIME. NO SOB OR DISCOMFORT. MONITORING RASH ON BILAT. HANDS. SIDE RAILS UP, CALL LIGHT WITHIN REACH. BED LOCKED. WILL CONTINUE TO MONITOR.
[2016-12-14 20:00] VITALS: BP 123/64
[2016-12-14] MEDS: TEMAZEPAM 15 MG CAPSULE PO PRN (22:16)
--- NOTE | 2016-12-15 06:53 | NUR ---
MS RN NOTE PATIENT STABLE. WILL ENDORSE TO DAY SHIFT FOR ALYSSA.
--- NOTE | 2016-12-15 07:10 | NUR ---
MS RN OPENING RECEIVED PATIENT A/OX4 DENIES SOB, DIFFICULTY BREATHING OR PAIN. PATIENT IVF NOT RUNNING PATIENT IS REFUSING. PATIENT WITH ALL NEEDS AT SIDE AND STATES NO OTHER NEEDS. PATIENT APPEARS STABLE AT THIS TIME AND WILL ROUND Q2H OR LESS PER NEEDS.
[2016-12-15] MEDS: PANTOPRAZOLE 40 MG TABLET.DR PO SCH (07:25)
[2016-12-15] MEDS: IV NS 0.9% 1,000 ML IV PRN (07:26)
[2016-12-15 07:30] LABS: BASOPHILS % (AUTO) 0.2 % (0.0-2.0); EOSINOPHILS % (AUTO) 0.3 % (0.0-6.0); HEMATOCRIT 25 % (33-45); HEMOGLOBIN 8.4 g/dL (11.5-14.8); MEAN CORPUSCULAR HEMOGLOBIN 33 PG (26.0-33.0); MEAN CORPUSCULAR HGB CONC 34 g/dl (31.0-36.0); MEAN CORPUSCULAR VOLUME 96 fL (82-100); MONOCYTES # (AUTO) 0.2 /CMM (0.1-1.30); NEUTROPHILS # (AUTO) 3.7 /CMM (1.8-8.9); NEUTROPHILS % (AUTO) 74.5 % (43.0-81.0); PLATELET COUNT (AUTO) 63 /CMM (150-450); RDW COEFFICIENT OF VARIATION 21.4 (11.5-15.0); RED BLOOD CELL COUNT(AUTO) 2.56 MIL/uL (4.0-5.2); WHITE BLOOD COUNT (AUTO) 4.9 K/uL (4.3-11.0)
[2016-12-15 07:44] LABS: CARBON DIOXIDE 25 mmol/L (21-32); CHLORIDE 107 mmol/L (98-107); CREATININE 0.7 mg/dL (0.6-1.3); GLUCOSE 100 mg/dL (74-106); PHOSPHORUS 2.6 mg/dL (2.5-4.9); SODIUM SERUM 142 mmol/L (136-145); UREA NITROGEN, BLOOD 32 mg/dL (7-18)
[2016-12-15 07:51] LABS: POTASSIUM 2.6 mmol/L (3.5-5.1)
[2016-12-15 08:00] VITALS: BP 114/69
[2016-12-15] MEDS ORDERED: POTASSIUM CHLORIDE 10 MEQ/50 ML PREMIXED IVPB FOR PERIPHERAL LINE IV ONE (08:30)
[2016-12-15] MEDS ORDERED: SECONDARY IV SET 1 EA INFUS.SET MC ONE (08:42)
[2016-12-15] MEDS: methylPREDNISolone SOD SUCC 125 MG/2ML VIAL IV SCH ×3 (08:49→17:13)
[2016-12-15] MEDS: FLUOCINONIDE 0.05% CREAM 60 GM TUBE TP SCH ×2 (08:50→17:17)
[2016-12-15] MEDS: Z GUARD REMEDY 2 OZ OINT TP PRN (08:51)
[2016-12-15] MEDS: VITAMINS A AND D 56.7 GM TUBE TP PRN (08:51)
[2016-12-15 08:57] LABS: BAND % (MANUAL) 5 % (0.0-5.0); LYMPHOCYTES % (MANUAL) 28 % (16-48); MONOCYTES % (MANUAL) 4 % (0-11.0); NEUTROPHILS % (MANUAL) 63 (42-76)
[2016-12-15] MEDS ORDERED: POTASSIUM CHLORIDE 20 MEQ TAB.PRT.SR PO SCH (09:00)
[2016-12-15] MEDS ORDERED: POTASSIUM CL. PREMIX PERIPHER. 50 ML IV SCH (09:00)
--- NOTE | 2016-12-15 10:20 | NUR ---
MS RN NOTES PATIENT IV ACCESS IS NOT INFUSING POTASSIUM; MACHINE CONTINUES TO BEEP. PATIENT REFUSING ANOTHER IV ACCESS. NOTIFIED MD. LOPEZ TO DC IV K ORDER AND ORDER 40MEQ TO TOTAL 80MEQ
[2016-12-15] MEDS ORDERED: POTASSIUM CHLORIDE 20 MEQ TAB.PRT.SR PO ONE (10:30)
--- NOTE | 2016-12-15 11:16 | NUR ---
MS RN NOTES PER DR KINGSLEY NO NEED TO ORDER LABS FOR FLUIDS
--- NOTE | 2016-12-15 15:16 | NUR ---
MS RN NOTES NOTIFIED DR ESTRADA OF MED RECON TO BE COMPLETED
[2016-12-15 16:00] VITALS: BP_SYST 122; BP_SYST 127; BP_DIAS 72
[2016-12-15] MEDS: DIPHENOXYLATE HCL/ATROP SULF 1 UDTAB TABLET PO PRN ×2 (17:13→22:36)
--- NOTE | 2016-12-15 17:23 | NUR ---
MS RN NOTES MESSAGE TO DR NATALIE GRIMM PATIENT IV INFILTRATED. REFUSING IV ACCESS. MESSAGE OK TO DC IVF AND CHANGE STEROID TO PO
--- NOTE | 2016-12-15 17:24 | NUR ---
MS RN NOTES IV REMOVED PRESSURE AND DRESSING APPLIED NO BLEEDING. CATH TIP INTACT
--- NOTE | 2016-12-15 18:45 | NUR ---
MS RN CLOSING PATIENT STABLE NO COMPLAINTS ALL DUE MEDS GIVEN AND ALL NEEDS MET. CALL LIGHT IN REACH, BED LOWERED AND LOCKED, RAILS UPX3 FOR SAFETY AND WILL ENDORSE CARE TO RN FOR ALYSSA. PATIENT IS HAVING ACTIVE DIARRHEA STILL WHICH PRN MEDICATION GIVEN ORDERED. WILL NOTIFY PATIENT PER MD SHE NEEDS TO HAVE IVF STILL ORDERED DUE TO ACTIVE DIARRHEA.
--- NOTE | 2016-12-15 18:55 | NUR ---
MS RN NOTES PATIENT UPDATED THAT MD REQUIRING AN IV ACCESS. PATIENT WILL NOT EVEN ALLOW ME TO LOOK FOR A VEIN...CALLED ANOTHER RN TO ATTEMPT
--- NOTE | 2016-12-15 19:30 | NUR ---
MS RN NOTE RECEIVED PATIENT AWAKE AND ALERT IN BED. DENIES ANY PAIN OR DISCOMFORT. NO RESPIRATORY DISTRESS OR SOB NOTED. WAITING FOR RESPONSE FROM DR. ESTRADA REGARDING RE-INSERT OF IV. ENCOURAGING PATIENT TO DRINK. BED LOCKED AND IN LOWEST POSITION. SIDE RAILS UP, CALL LIGHT WITHIN REACH. WILL CONTINUE TO MONITOR.
[2016-12-15 20:14] VITALS: BP 119/72
[2016-12-15 22:00] VITALS: BP 119/72
--- NOTE | 2016-12-15 22:00 | NUR ---
MS RN NOTE ATTEMPTED TO RE-INSERT IV TWICE WITH NO SUCCESS. WILL TRY AGAIN LATER. ENCOURAGING PT. TO DRINK FLUIDS. WILL CONTINUE TO MONITOR.
[2016-12-15] MEDS: TEMAZEPAM 15 MG CAPSULE PO PRN (22:13)
--- NOTE | 2016-12-16 01:30 | NUR ---
MS RN NOTE ATTEMPTED TO RE-INSERT IV TWICE AGAIN. NO SUCCESS. ENCOURAGING PT. TO DRINK.
--- NOTE | 2016-12-16 03:00 | NUR ---
MS RN NOTE RE-INSERTED IV TO LEFT THUMB #24. PATIENT TOLERATED WELL.
--- NOTE | 2016-12-16 06:22 | NUR ---
MS RN NOTE PATIENT STABLE. ALL NEEDS MET AND ATTENDED TO. WILL ENDORSE TO DAY SHIFT FOR ALYSSA.
[2016-12-16 06:46] LABS: BASOPHILS % (AUTO) 0.2 % (0.0-2.0); EOSINOPHILS % (AUTO) 0.2 % (0.0-6.0); HEMATOCRIT 27 % (33-45); HEMOGLOBIN 9.1 g/dL (11.5-14.8); LYMPHOCYTES # (AUTO) 1.5 /CMM (0.8-4.8); LYMPHOCYTES % (AUTO) 22.4 % (20.0-44.0); MEAN CORPUSCULAR HEMOGLOBIN 33 PG (26.0-33.0); MEAN CORPUSCULAR HGB CONC 34 g/dl (31.0-36.0); MEAN CORPUSCULAR VOLUME 98 fL (82-100); MONOCYTES # (AUTO) 0.1 /CMM (0.1-1.30); MONOCYTES % (AUTO) 2.2 % (2.0-12.0); NEUTROPHILS # (AUTO) 4.9 /CMM (1.8-8.9); PLATELET COUNT (AUTO) 68 /CMM (150-450); RDW COEFFICIENT OF VARIATION 22.2 (11.5-15.0); RED BLOOD CELL COUNT(AUTO) 2.74 MIL/uL (4.0-5.2); WHITE BLOOD COUNT (AUTO) 6.5 K/uL (4.3-11.0)
[2016-12-16 07:04] LABS: CALCIUM, SERUM 8.4 mg/dL (8.5-10.1); CARBON DIOXIDE 25 mmol/L (21-32); CHLORIDE 105 mmol/L (98-107); CREATININE 0.7 mg/dL (0.6-1.3); GLUCOSE 80 mg/dL (74-106); MAGNESIUM 1.8 mg/dL (1.8-2.4); PHOSPHORUS 2.1 mg/dL (2.5-4.9); POTASSIUM 4.7 mmol/L (3.5-5.1); SODIUM SERUM 138 mmol/L (136-145); UREA NITROGEN, BLOOD 35 mg/dL (7-18)
--- NOTE | 2016-12-16 07:05 | NUR ---
MS RN OPENING RECEIVED PATIENT A/OX4 DENIES SOB, DIFFICULTY BREATHING OR PAIN. PATIENT IVF RUNNING ORDERED. PATIENT WITH ALL NEEDS AT SIDE AND STATES NO OTHER NEEDS. PATIENT APPEARS STABLE AT THIS TIME AND WILL ROUND Q2H OR LESS PER NEEDS
[2016-12-16 08:00] VITALS: BP 107/74
[2016-12-16] MEDS: IV NS 0.9% 1,000 ML IV PRN (08:09)
[2016-12-16] MEDS: methylPREDNISolone SOD SUCC 125 MG/2ML VIAL IV SCH ×2 (08:12→13:12)
[2016-12-16] MEDS: FLUOCINONIDE 0.05% CREAM 60 GM TUBE TP SCH (08:12)
[2016-12-16] MEDS: PANTOPRAZOLE 40 MG TABLET.DR PO SCH (08:12)
[2016-12-16] MEDS: Z GUARD REMEDY 2 OZ OINT TP PRN (08:12)
[2016-12-16 08:44] LABS: BAND % (MANUAL) 7 % (0.0-5.0); EOSINOPHILS % (MANUAL) 5 % (0-4); LYMPHOCYTES % (MANUAL) 24 % (16-48); MONOCYTES % (MANUAL) 4 % (0-11.0); NEUTROPHILS % (MANUAL) 60 (42-76)
--- NOTE | 2016-12-16 12:30 | NUR ---
ms rn notes per dr pete greer ok order 2 tabs (500mg) po neutraphos once for replacement.
[2016-12-16] MEDS ORDERED: K PHOS NEUTRAL 250 MG TABLET PO ONE (13:00)
[2016-12-16] MEDS ORDERED: ERGO500047 PO (14:51)
[2016-12-16] MEDS ORDERED: FLUO15CR TP (14:51)
[2016-12-16] MEDS ORDERED: PRED20TA PO (14:51)
--- NOTE | 2016-12-16 14:56 | NUR ---
MS RN NOTES CALLED DISCHARGE PRESCRIPTIONS INTO PATIENT PREFERRED PHARMACY.
--- NOTE | 2016-12-16 15:15 | NUR ---
MS RN NOTES PATIENT DOESNT WANT PHOTOS OF SKIN TAKEN SHE WANTS TO LEAVE [facility] AND SAID SHE HAD PICTURES TAKEN YESTERDAY
--- NOTE | 2016-12-16 15:30 | NUR ---
MS INSURANCE CLAIMS EXAMINER PATIENT LEFT IN STABLE BASELINE CONDITION. NO COMPLAINTS OF DIARRHEA. WNL STOOLS. IV REMOVED PRESSURE AND DRESSING APPLIED WITH NO BLEEDING NOTED. PATIENT AND NEICE EDUCATED ON DISCHARGE AND STATED UNDERSTANDING. ALL BELONGINGS ACCOUNTED FOR AND SIGNED. PATIENT ASSISTED TO WHEELCHAIR. UNDERSTANDING OF MEDICATIONS ON DC, RX CALLED TO PHARM, APPOINTMENT ALREADY SET UP WITH ONCOLOGIST AND WOUND CENTER INFORMATION GIVEN FOR F/U APPOINTMENT. PATIENT ASSISTED TO CAR IN STABLE CONDITION BY TON PIKE.
[2016-12-17] MEDS ORDERED: ERGOCALCIFEROL (VITAMIN D 2) 50,000 UNIT CAPSULE PO SCH (10:00)
== END 2016-12-16 15:30 | disposition home or self-care (01) | DRG 595 ==
LOC: ER 19:49 → MEDSG2 23:06
PROVIDERS: ADMIT Nurse Practitioner Acute Care; ATTEND Nurse Practitioner Acute Care
DX: L51.1 Stevens-Johnson syndrome (principal); N17.0 Acute kidney failure with tubular necrosis; C85.90 Non-Hodgkin lymphoma, unspecified, unspecified site; L27.1 Localized skin eruption due to drugs and medicaments taken internally; F41.9 Anxiety disorder, unspecified; G89.4 Chronic pain syndrome; Z88.0 Allergy status to penicillin; Z88.8 Allergy status to other drugs, medicaments and biological substances; T37.0X5A Adverse effect of sulfonamides, initial encounter; Y92.009 Unspecified place in unspecified non-institutional (private) residence as the place of occurrence of the external cause; D64.9 Anemia, unspecified; D69.6 Thrombocytopenia, unspecified; D72.825 Bandemia; E55.9 Vitamin D deficiency, unspecified; E86.0 Dehydration; E87.6 Hypokalemia; E88.09 Other disorders of plasma-protein metabolism, not elsewhere classified; D63.8 Anemia in other chronic diseases classified elsewhere; Z92.21 Personal history of antineoplastic chemotherapy; K64.9 Unspecified hemorrhoids; L30.1 Dyshidrosis [pompholyx]
CPT/HCPCS: 36415; 70450-TC; 71010-TC; 80048-TC; 80053-TC; 80061-TC; 80076-TC; 81000-TC; 82272-TC; 82306; 82728-TC; 82746; 82962-TC; 83010; 83540-TC; 83605-TC; 83615-TC; 83690-TC; 83735-TC; 84100-TC; 84132-TC; 84443-TC; 84550-TC; 85025-TC; 85045-TC; 85396; 85652-TC; 85730-TC; 87040-TC; 87081-TC; A4606; A9563; J1650; J2270; J2405; J2430; J2930; J3475; J3480; J3490; J7030; J7040; J7060; Q0177; Z7610

== ENCOUNTER 2017-01-03 09:06 | Emergency (ER) | payer OTHER ==
[~2017-01-03] VITALS: Ht 154.9 cm; Wt 36.7 kg
[~2017-01-03 09:06] MED LIST: ERGO500047 PO; FLUO15CR TP; FOLI1TAB16 PO; LORA0.5T PO; MULT1TAB73 PO; PANT40TA2 PO; PRED20TA PO
--- NOTE | 2017-01-03 09:15 | NUR ---
BIB SONS DT SORETHROAT THAT CAUSES DIFFICULTY SWALLOWING. PATIENT WAS ON ATB FOR PHARYNGITIS FO8 DAYS. BUT NO IMPROVEMENT REPORTED,. PATIENT DENIES CHEST PAIN,. SKIN IS WARM TO TOUCH AND NON DIAPHORETIC. PATIENT IS AFEBRILE. VSS
[2017-01-03] MEDS ORDERED: MAG HYDROX/AL HYDROX/SIMETH 30 ML UDC PO ONE (10:30)
[2017-01-03] MEDS ORDERED: LIDOCAINE VISCOUS 2% UD 15 ML UDC MM ONE (10:30)
--- NOTE | 2017-01-03 10:31 | NUR ---
PAGED DR LEUNG REGIONAL PROJECT MANAGER FOR DR GERI HWANG (ONCOLOGIST)
--- NOTE | 2017-01-03 10:34 | NUR ---
SPOKE WITH DR LEUNG AND HE NOTIFIED ME THAT HE IS NOT BROACHING MACHINE OPERATOR FOR DR NEVAREZ TO
--- NOTE | 2017-01-03 10:35 | NUR ---
CALLED DR GERI HWANG'S OFFICE , PAGED DR. ANJELICA LOCKHART
[2017-01-03] MEDS ORDERED: MAG HYDROX/AL HYDROX/SIMETH 30 ML UDC ONE (10:37)
[2017-01-03] MEDS ORDERED: LIDOCAINE VISCOUS 2% UD 15 ML UDC ONE (10:37)
--- NOTE | 2017-01-03 10:49 | NUR ---
PATIENT IS BACK FROM [facility]
--- NOTE | 2017-01-03 11:13 | NUR ---
RECEIVED A CALL FROM [employer] AND THEY NOTIFIED ME THAT DR ANJELICA LOCKHART DOES NOT COVER DR NEVAREZ TO
[2017-01-03 11:37] VITALS: BP 101/63
--- NOTE | 2017-01-03 11:37 | NUR ---
Patient discharged to home in stable condition. Written and verbal after care instructions given. Patient verbalizes understanding of instruction.
== END 2017-01-03 11:53 | disposition home or self-care (01) ==
LOC: ER 09:07
DX: J39.2 Other diseases of pharynx (principal); J04.0 Acute laryngitis; G89.29 Other chronic pain; Z85.72 Personal history of non-Hodgkin lymphomas; Z88.0 Allergy status to penicillin
CPT/HCPCS: 70360-TC; A4606; Z7610

== ENCOUNTER 2017-03-01 19:05 | Inpatient (IN) | payer MEDICARE, OTHER ==
[~2017-03-01] VITALS: Ht 152.4 cm; Wt 36.7 kg
--- NOTE | 2017-03-01 19:15 | NUR ---
71 YO FEMALE BB FAMILY. PER FAMILY, DURING AMBULATION AT HOME, PT MISSED A STEP, FELL AND HIT THE SIDE OF HER NECK ON THE WAY DOWN. PT ASSISTED TO ER BED, SKIN WARM AND DRY, RR EVEN AND UNLABORED.. PT GOWNED, PLACED ON INVENTORY ASSISTANT. AWAITING ORDERS FROM PROVIDER, WILL CONTINUE TO MONITOR
--- NOTE | 2017-03-01 19:22 | NUR ---
ON ASSESSMENT, PT STATE BILATERAL ARMS ARE HURTING ALONG WITH NECK PAIN
[2017-03-01] MEDS ORDERED: ONDANSETRON HCL/PF 4 MG/2 ML VIAL ONE (19:35)
[2017-03-01] MEDS ORDERED: HYDROMORPHONE INJ 2 MG/ML DISP.SYRIN ONE ×3 (19:36→23:58)
--- NOTE | 2017-03-01 19:54 | NUR ---
22G LEFT AC IV STARTED. MEDICATED PT ORDERED
[2017-03-01] MEDS ORDERED: IV NS 0.9% 1,000 ML BAG IV ONE (20:00)
[2017-03-01] MEDS ORDERED: ONDANSETRON HCL/PF 4 MG/2 ML VIAL IVP ONE (20:00)
[2017-03-01] MEDS ORDERED: HYDROMORPHONE INJ 2 MG/ML DISP.SYRIN IV ONE (20:00)
[2017-03-01 20:01] LABS: BASOPHILS % (AUTO) 0.2 % (0.0-2.0); EOSINOPHILS # (AUTO) 0.1 /CMM (0.0-0.7); EOSINOPHILS % (AUTO) 0.7 % (0.0-6.0); HEMATOCRIT 28 % (33-45); HEMOGLOBIN 9.3 g/dL (11.5-14.8); LYMPHOCYTES # (AUTO) 2.6 /CMM (0.8-4.8); LYMPHOCYTES % (AUTO) 34.7 % (20.0-44.0); MEAN CORPUSCULAR HEMOGLOBIN 33 PG (26.0-33.0); MEAN CORPUSCULAR HGB CONC 33 g/dl (31.0-36.0); MEAN CORPUSCULAR VOLUME 101 fL (82-100); MONOCYTES # (AUTO) 0.5 /CMM (0.1-1.30); MONOCYTES % (AUTO) 6.1 % (2.0-12.0); NEUTROPHILS # (AUTO) 4.4 /CMM (1.8-8.9); NEUTROPHILS % (AUTO) 58.3 % (43.0-81.0); PLATELET COUNT (AUTO) 137 /CMM (150-450); RDW COEFFICIENT OF VARIATION 20.9 (11.5-15.0); RED BLOOD CELL COUNT(AUTO) 2.81 MIL/uL (4.0-5.2); WHITE BLOOD COUNT (AUTO) 7.6 K/uL (4.3-11.0)
[2017-03-01 20:15] LABS: CALCIUM, SERUM 9.2 mg/dL (8.5-10.1); CARBON DIOXIDE 24 mmol/L (21-32); CHLORIDE 108 mmol/L (98-107); CREATININE 0.7 mg/dL (0.6-1.3); GLUCOSE 129 mg/dL (74-106); POTASSIUM 3.5 mmol/L (3.5-5.1); SODIUM SERUM 142 mmol/L (136-145); UREA NITROGEN, BLOOD 32 mg/dL (7-18)
[2017-03-01 20:21] LABS: ALANINE AMINOTRANSFERASE 36 U/L (12-78); ALBUMIN 3.3 g/dL (3.4-5.0); ALKALINE PHOSPHATASE 135 U/L (46-116); ASPARTATE AMINOTRANSFERASE 19 U/L (15-37); BILIRUBIN,TOTAL 0.3 mg/dL (0.2-1.0); TOTAL PROTEIN, SERUM 7.4 g/dL (6.4-8.2)
[2017-03-01] MEDS ORDERED: IV NS 0.9% 250 ML IV ONE (20:22)
[2017-03-01] MEDS ORDERED: IOHEXOL-300 100 ML VIAL IV ONE (20:22)
[2017-03-01 20:58] LABS: APPEARANCE,URINE CLEAR (CLEAR); BILIRUBIN,URINE NEGATIVE (NEGATIVE); BLOOD, URINE 2+ Ery/uL (NEGATIVE); COLOR,URINE YELLOW (YELLOW); KETONES,URINE NEGATIVE (NEGATIVE); LEUKOCYTE ESTERASE ,URINE TRACE (NEGATIVE); NITRITE, URINE NEGATIVE (NEGATIVE); PROTEIN,URINE 1+ mg/dl (NEGATIVE); UGLUCOSE NEGATIVE (NEGATIVE); UROBILINOGEN,URINE 0.2 EU/dL (0.2)
[2017-03-01] MEDS ORDERED: HYDROMORPHONE 1 MG/1 ML DISP.SYRIN IV ONE (21:00)
[2017-03-01 21:11] LABS: BACTERIA,URINE 1+ /HPF (None Seen); RBC,URINE 0-2 /HPF (0-2); SQUAMOUS EPITHELIAL CELL,UR 0-2 /HPF (None Seen)
[2017-03-01] MEDS ORDERED: CEFTRIAXONE 1GM BAG (ER ONLY) 50 ML IV ONE ×2 (22:07→22:30)
--- NOTE | 2017-03-01 22:23 | NUR ---
TELE 306.2
[2017-03-01] MEDS ORDERED: IBUP-1482 PO (22:44)
[2017-03-01] MEDS ORDERED: GABA-534 PO (22:44)
[2017-03-01] MEDS ORDERED: OXYC-128 PO (22:44)
--- NOTE | 2017-03-01 23:00 | NUR ---
REPORT GIVEN TO NADYA FOR ALYSSA
[2017-03-01 23:30] VITALS: BP 140/86
[2017-03-02] VITALS: BP 140/86
[2017-03-02] MEDS ORDERED: HYDROCODONE/APAP 5/325MG 1 EACH TABLET PO PRN
[2017-03-02] MEDS ORDERED: HYDROMORPHONE 1 MG/1 ML DISP.SYRIN IV PRN
[2017-03-02] MEDS ORDERED: ONDANSETRON HCL/PF 4 MG/2 ML VIAL IV PRN
[2017-03-02] MEDS ORDERED: ACETAMINOPHEN 325 MG TABLET PO PRN
--- NOTE | 2017-03-02 | NUR ---
TELE/RN NOTES PT RECEIVED FROM ER VIA JOHNIE MENEZES2-3, ON ROOM AIR, BREATHING EVEN AND UNLABORED. DENIES SOB. NOTES 10/10 PAIN TO RIGHT NECK AND ARM. ACCOMPANIED BY SON JAZLYN AND DAUGHTER IN [place] . PLACED ON TELE MONITOR SHOWING SINUS RHYTHM HR IN THE 90'S. ORIENTED PT TO ROOM AND CALL LIGHT. SIDE RAILS UPX2 AND BED ALARM ON FOR SAFETY. BED IN LOW/LOCKED POSITION WITH CALL LIGHT IN REACH. WILL CONTINUE TO MONITOR
[2017-03-02] MEDS ORDERED: IV PREMIX 0.45% NS + KCL 1,000 ML IV ONE (00:29)
[2017-03-02] MEDS ORDERED: HYDROMORPHONE INJ 2 MG/ML DISP.SYRIN IV PRN (01:00)
--- NOTE | 2017-03-02 01:01 | NUR ---
TELE/RN NOTES ORDER FOR DILAUDID 1MG IVP PRN Q3H NOTED AND ADMINISTERED PER PT'S REQUEST. [facility] ONLY HAS 2MG VIALS AVAILABLE. WASTED WITH CRN AND ADMINISTERED 1MG ORDERED. CHANGED ORDER IN COMPUTER ACCORDINGLY
[2017-03-02] MEDS ORDERED: HYDROMORPHONE INJ 2 MG/ML DISP.SYRIN ONE (03:38)
[2017-03-02 04:00] VITALS: BP 138/88
[2017-03-02 06:24] LABS: BASOPHILS % (AUTO) 0.3 % (0.0-2.0); EOSINOPHILS # (AUTO) 0.1 /CMM (0.0-0.7); EOSINOPHILS % (AUTO) 0.8 % (0.0-6.0); HEMATOCRIT 29 % (33-45); HEMOGLOBIN 9.9 g/dL (11.5-14.8); LYMPHOCYTES # (AUTO) 2.3 /CMM (0.8-4.8); LYMPHOCYTES % (AUTO) 31.1 % (20.0-44.0); MEAN CORPUSCULAR HEMOGLOBIN 34 PG (26.0-33.0); MEAN CORPUSCULAR HGB CONC 34 g/dl (31.0-36.0); MEAN CORPUSCULAR VOLUME 101 fL (82-100); MONOCYTES # (AUTO) 0.5 /CMM (0.1-1.30); MONOCYTES % (AUTO) 6.2 % (2.0-12.0); NEUTROPHILS # (AUTO) 4.5 /CMM (1.8-8.9); NEUTROPHILS % (AUTO) 61.6 % (43.0-81.0); PLATELET COUNT (AUTO) 105 /CMM (150-450); RDW COEFFICIENT OF VARIATION 20.6 (11.5-15.0); WHITE BLOOD COUNT (AUTO) 7.4 K/uL (4.3-11.0)
[2017-03-02 06:48] LABS: ALANINE AMINOTRANSFERASE 33 U/L (12-78); ALBUMIN 3.2 g/dL (3.4-5.0); ALKALINE PHOSPHATASE 110 U/L (46-116); ASPARTATE AMINOTRANSFERASE 24 U/L (15-37); BILIRUBIN,TOTAL 0.3 mg/dL (0.2-1.0); CARBON DIOXIDE 23 mmol/L (21-32); CHLORIDE 104 mmol/L (98-107); CREATININE 0.6 mg/dL (0.6-1.3); GLUCOSE 91 mg/dL (74-106); POTASSIUM 3.7 mmol/L (3.5-5.1); SODIUM SERUM 136 mmol/L (136-145); UREA NITROGEN, BLOOD 21 mg/dL (7-18)
[2017-03-02 06:50] LABS: THYROID STIMULATING HORMONE 6.951 uIU/mL (0.358-3.74)
[2017-03-02 07:00] VITALS: BP 130/79
--- NOTE | 2017-03-02 07:46 | NUR ---
TELE/RN NOTES PT SITTING IN CHAIR, ON ROOM AIR, BREATHING EVEN AND UNLABORED. DENIES SOB/ PAIN AT THIS TIME. ON TELE MONITOR SHOWING SINUS RHYTHM WITH HR IN THE 90'S. IV TO LEFT AC PATENT AND INTACT RUNNING IVF ORDERED. ALL NEEDS MET AND ATTENDED. MADE PT COMFORTABLE DURING SHIFT. BED IN LOW/LOCKED POSITION WITH CALL LIGHT IN REACH. SIDE RAILS UPX2. ENDORSED TO AM SHIFT ALYSSA.
--- NOTE | 2017-03-02 08:00 | NUR ---
DEPARTMENT OF NATURAL RESOURCES OFFICER NOTES PATIENT IN BED RESTING NO SOB OR ACUTE DISTRESS NOTED. BED IN LOW LOCKED POSITION, CALL LIGHT WITHIN REACH. PERIPHERAL IV INTACT, PATENT. WILL CONTINUE TO MONITOR CLOSELY.
[2017-03-02] MEDS ORDERED: OXYC-34 PO (08:42)
[2017-03-02] MEDS ORDERED: LEVO500T90 PO (08:44)
[2017-03-02] MEDS ORDERED: LEVOFLOXACIN (250MG) 250 MG TABLET PO SCH (09:00)
--- NOTE | 2017-03-02 09:00 | NUR ---
SHIRRING MACHINE OPERATOR NOTES PATIENT SEEN AND EVALUATED BY DR. SANDHU ORDER NOTED AND CARRIED OUT.
--- NOTE | 2017-03-02 12:30 | NUR ---
FOOT TENDER NOTES PATIENT DISCHARGED HOME WITH SON. MD AWARE OF ALL ABNORMAL LABS. DISCHARGE TEACHING PROVIDED TO PATIENT AND SON, VERBALIZED UNDERSTANDING. DISCHARGE PROTOCOL FOLLOWED. ALL BELONGINGS ACCOUNTED FOR, DISCHARGE BELONGING LIST SIGNED. PRESCRIPTION PROVIDED TO SON. PATIENTS SON VERBALIZED FOLLOW UP INSTRUCTIONS. PERIPHERAL IV REMOVED WITH MINIMAL BLEEDING. ID BAND ALSO REMOVED. PATIENT ESCORTED TO CAR BY SPIN INSTRUCTOR.
== END 2017-03-02 13:00 | disposition home or self-care (01) | DRG 552 ==
LOC: ER 19:07 → TELE 22:34
PROVIDERS: ADMIT Internal Medicine; ATTEND Internal Medicine
DX: S16.1XXA Strain of muscle, fascia and tendon at neck level, initial encounter (principal); C85.94 Non-Hodgkin lymphoma, unspecified, lymph nodes of axilla and upper limb; G62.9 Polyneuropathy, unspecified; M48.02 Spinal stenosis, cervical region; E44.1 Mild protein-calorie malnutrition; N39.0 Urinary tract infection, site not specified; D53.9 Nutritional anemia, unspecified; S10.93XA Contusion of unspecified part of neck, initial encounter; S13.9XXA Sprain of joints and ligaments of unspecified parts of neck, initial encounter; W10.9XXA Fall (on) (from) unspecified stairs and steps, initial encounter; Y92.009 Unspecified place in unspecified non-institutional (private) residence as the place of occurrence of the external cause; G89.29 Other chronic pain; Z88.1 Allergy status to other antibiotic agents; Z88.0 Allergy status to penicillin; Z88.2 Allergy status to sulfonamides; Z88.8 Allergy status to other drugs, medicaments and biological substances; Z79.899 Other long term (current) drug therapy; J38.1 Polyp of vocal cord and larynx; J47.9 Bronchiectasis, uncomplicated
CPT/HCPCS: 36415; 70491-TC; 80048-TC; 80053-TC; 80076-TC; 81000-TC; 83605-TC; 84443-TC; 85025-TC; 87040-TC; 87081-TC; 87086-TC; 87186-TC; A4606; J0696; J1170; J2405; J3480; J3490; J7030; J7050; Q9967; Z7610